=== PATIENT | female | born 1985 | race Caucasian/White ===

== ENCOUNTER 2017-04-17 00:19 | Emergency (ER) | payer OTHER ==
[2017-04-17] MEDS ORDERED: SODIUM CHLORIDE 0.9% 1,000 ML IV ONE (00:37)
[2017-04-17] MEDS ORDERED: cefTRIAXone 1 GM in SODIUM CHLORIDE 0.9% MINIBAG 100 ML IV STA (00:37)
[2017-04-17 01:00] LABS: BASOPHILS # (AUTO) 0.1 10^3/uL (0.0-0.1); BASOPHILS % (AUTO) 0.9 %; HGB - HEMOGLOBIN 13.1 g/dL (12.0-16.0); LYMPHOCYTES # (AUTO) 1.7 10^3/uL (1.5-3.5); LYMPHOCYTES % (AUTO) 18.5 %; MEAN CORPUSCULAR HEMOGLOBIN 27.6 pg (27.0-31.0); MONOCYTES # (AUTO) 0.8 10^3/uL (0.0-1.0); MONOCYTES % (AUTO) 8.4 %; NEUTROPHILS # (AUTO) 6.7 10^3/uL (1.5-6.6); NEUTROPHILS % (AUTO) 72.2 %; PLT - PLATELET COUNT 355 10^3/uL (130-450); RED BLOOD COUNT 4.73 10^6/uL (4.20-5.40); RED CELL DISTRIBUTION WIDTH 14.7 % (12.0-15.0); WHITE BLOOD COUNT 9.4 x10^3/uL (4.8-10.8)
[2017-04-17 01:10] LABS: ALBUMIN 4.3 g/dL (3.2-5.5); ALBUMIN/GLOBULIN RATIO 1.3 (1.0-2.2); BILIRUBIN,TOTAL 0.6 mg/dL (0.2-1.0); CALCIUM 9.1 mg/dL (8.5-10.3); CREATININE 0.9 mg/dL (0.4-1.0); TOTAL PROTEIN 7.5 g/dL (6.7-8.2)
--- NOTE | 2017-04-17 02:00 | ED Physician Documentation ---
History of Present Illness - Stated complaint Stated Complaint: FEVER - Chief complaint Chief Complaint: Fever - History obtained from History obtained from: Patient, Friend - History of Present Illness Timing: Today - Additonal information Additional information: patient is a 31 year old female with a history of stage 4 melanoma on chemotherapy who is presenting to the emergency department for fevers and aches. patient states that she had been diagnosed with a urinary tract infection two days ago and has been started on macrobid. patient states that she had a fever of 100.6 today so she called the oncall nurse for the oncology department. patient states that they told her to come to the emergency department for evaluation. Upon initial evaluation in the emergency department patient was afebrile but mildly tachycardic. patient stated that she always gets an elevated in the hospital. patient was otherwise well appearing. Review of Systems Constitutional: reports: Fever, Myalgias Eyes: denies: Decreased vision, Discharge, Irritation Ears: reports: Reviewed and negative Nose: reports: Reviewed and negative Throat: reports: Reviewed and negative Cardiac: denies: Chest pain / pressure, Palpitations Respiratory: denies: Cough, Wheezing GI: denies: Abdominal Pain, Nausea, Vomiting : reports: Frequency. denies: Dysuria Skin: denies: Rash, Lesions Musculoskeletal: denies: Neck pain, Back pain, Extremity pain Neurologic: denies: Generalized weakness, Focal weakness, Syncope Immunocompromised: reports: Immunocompromised, Chemotherapy PD PAST MEDICAL HISTORY - Past Medical History Past Medical History: Yes Other Past Medical History: Melnoma Stage IV - Past Surgical History Past Surgical History: Yes - Present Medications Home Medications: Ambulatory Orders Medication Instructions Recorded Confirmed Cephalexin [Keflex] 500 mg PO Q8H 7 Days capsule 04/17/17 Dabrafenib Mesylate [Tafinlar] 1 cap PO BID 04/17/17 04/17/17 Nitrofurantoin Monohyd/M-Cryst 1 cap PO BID 04/17/17 04/17/17 [Macrobid 100 mg Capsule] Trametinib Dimethyl Sulfoxide 3 tab PO DAILY 04/17/17 04/17/17 [Mekinist] - Allergies Allergies/Adverse Reactions: Allergies Allergy/AdvReac Type Severity Reaction Status Date / Time No Known Drug Allergies Allergy Verified 04/17/17 00:23 - Social History Does the pt smoke?: No Smoking Status: Never smoker Does the pt drink ETOH?: Yes Does the pt have substance abuse?: No - Immunizations Immunizations are current?: Yes - POLST Patient has POLST: No PD ED PE NORMAL - Vitals Vital signs reviewed: Yes - General General: Alert and oriented X 3, No acute distress, Well developed/nourished - HEENT HEENT: Atraumatic, PERRL, Moist mucous membranes, Pharynx benign - Neck Neck: Supple, no meningeal sign, No JVD - Respiratory Respiratory: No respiratory distress, Clear bilaterally - Abdomen Abdomen: Soft, Non tender, Non distended - Derm Derm: Normal color, Warm and dry, No rash - Extremities Extremities: No deformity, Normal ROM s pain, No calf tenderness / cord - Neuro Neuro: Alert and oriented X 3, No motor deficit, No sensory deficit, Normal speech Eye Opening: Spontaneous Motor: Obeys Commands Verbal: Oriented GCS Score: 15 - Psych Psych: Normal mood PD ED PE EXPANDED - Cardiac Cardiac: Tachy Results - Vitals Vitals: Vital Signs - 24 hr 04/17/17 04/17/17 00:20 01:22 Temperature 37.6 C H 36.9 C Heart Rate 120 H 104 H Respiratory 16 17 Rate Blood Pressure 125/81 H 106/82 H O2 Saturation 97 99 Oxygen O2 Source Room air - Labs Labs: Laboratory Tests 04/17/17 04/17/17 00:50 00:50 WBC 9.4 RBC 4.73 Hgb 13.1 Hct 37.4 MCV 79.0 L MCH 27.6 MCHC 35.0 RDW 14.7 Plt Count 355 MPV 8.0 Neut # 6.7 H Lymph # 1.7 Powell # 0.8 Eos # 0.0 Baso # 0.1 Absolute Nucleated RBC 0.00 Nucleated RBC % 0.0 Sodium 133 L Potassium 3.6 Chloride 101 Carbon Dioxide 21 Anion Gap 11.0 BUN 13 Creatinine 0.9 Estimated GFR (MDRD) 74 L Glucose 113 H Calcium 9.1 Total Bilirubin 0.6 AST 24 ALT 21 Alkaline Phosphatase 76 Total Protein 7.5 Albumin 4.3 Globulin 3.2 Albumin/Globulin Ratio 1.3 Lipase 31 PD MEDICAL DECISION MAKING - ED course Complexity details: reviewed old records, reviewed results, re-evaluated patient , considered differential, d/w patient, d/w banking consultant ED course: Patient was seen and examined at bedside. IV access was gained and labs were drawn. Cultures were drawn. patient was treated with a fluid bolus and rocephin. When patient's diagnostics came back they were within normal limits. Patient's tachycardia resolved. cancer center was contacted and the case was discussed with the supervisor dehydrogenation fellow. he agreed that the patient was likely stable for outpatient follow up and the team would reach out to the patient to check in on her tomorrow. Patient was made aware of, and agreed with the plan. Patient was able to tolerate PO without difficulty and was stable for discharge with outpatient follow up. Departure - Departure Disposition: 01 Home, Self Care Clinical Impression: Urinary tract infection Condition: Good Instructions: ED UTI Cystitis Female, ED Fever Control Follow-Up: primary,care provider [Other] - Tomorrow Prescriptions: Cephalexin [Keflex] 500 mg PO Q8H 7 Days capsule Comments: Your diagnostics today were within normal limits. Your antibiotics have been switched and you will need to take them every 8 hours. You should follow up with your oncology team tomorrow. You should stay well hydrated and take motrin or tylenol as needed for fevers. You may return to the emergency department at any time for new, worsening or uncontrollable symptoms.
[2017-04-17] MEDS ORDERED: CEPHALEXIN 250 MG Prepack 8 PO ONE (02:04)
[2017-04-17 02:21] LABS: BILIRUBIN,URINE NEGATIVE (NEGATIVE); GLUCOSE, URINE (UA) NEGATIVE (NEGATIVE); KETONES,URINE (UA) TRACE mg/dL (NEGATIVE); LEUKOCYTE ESTERASE, URINE NEGATIVE (NEGATIVE); NITRITE,URINE NEGATIVE (NEGATIVE); OCCULT BLOOD,URINE NEGATIVE (NEGATIVE); PROTEIN,URINE NEGATIVE (NEGATIVE); UROBILINOGEN,URINE 0.2 (NORMAL) E.U./dL (NORMAL)
[2017-04-17 02:24] LABS: CLARITY,URINE CLEAR (CLEAR)
[2017-04-17 02:25] LABS: HCG UR QUAL NEGATIVE
[2017-04-17 02:30] VITALS: BP 102/72
== END 2017-04-17 02:25 | disposition home or self-care (01) ==
LOC: ED 00:19
DX: N39.0 Urinary tract infection, site not specified (principal); C43.9 Malignant melanoma of skin, unspecified; Z79.899 Other long term (current) drug therapy
CPT/HCPCS: 36415; 80053; 81001; 81003; 81025; 83605; 83690; 85025; 87040; 87086; 99283; 99284

== ENCOUNTER 2017-04-18 23:05 | Emergency (ER) | payer OTHER ==
[2017-04-18] MEDS ORDERED: SODIUM CHLORIDE 0.9% 1,000 ML IV ONE (23:33)
[2017-04-18 23:58] LABS: BASOPHILS % (AUTO) 0.3 %; HGB - HEMOGLOBIN 12.1 g/dL (12.0-16.0); LYMPHOCYTES # (AUTO) 1.2 10^3/uL (1.5-3.5); MEAN CORPUSCULAR HEMOGLOBIN 27.8 pg (27.0-31.0); MEAN CORPUSCULAR HGB CONC 35.5 g/dL (32.0-36.0); MEAN CORPUSCULAR VOLUME 78.4 fL (81.0-99.0); MONOCYTES # (AUTO) 0.4 10^3/uL (0.0-1.0); MONOCYTES % (AUTO) 6.8 %; NEUTROPHILS # (AUTO) 4.1 10^3/uL (1.5-6.6); NEUTROPHILS % (AUTO) 71.9 %; PLT - PLATELET COUNT 300 10^3/uL (130-450); RED BLOOD COUNT 4.37 10^6/uL (4.20-5.40); RED CELL DISTRIBUTION WIDTH 14.3 % (12.0-15.0); WHITE BLOOD COUNT 5.7 x10^3/uL (4.8-10.8)
[2017-04-19 00:08] LABS: BILIRUBIN,URINE NEGATIVE (NEGATIVE); GLUCOSE, URINE (UA) NEGATIVE (NEGATIVE); KETONES,URINE (UA) 15 mg/dL (NEGATIVE); LEUKOCYTE ESTERASE, URINE NEGATIVE (NEGATIVE); NITRITE,URINE NEGATIVE (NEGATIVE); OCCULT BLOOD,URINE NEGATIVE (NEGATIVE); PROTEIN,URINE NEGATIVE (NEGATIVE); UROBILINOGEN,URINE 2 E.U./dL (NORMAL)
[2017-04-19 00:09] LABS: ALBUMIN 3.6 g/dL (3.2-5.5); ALBUMIN/GLOBULIN RATIO 1.2 (1.0-2.2); BILIRUBIN,TOTAL 0.5 mg/dL (0.2-1.0); CALCIUM 8.6 mg/dL (8.5-10.3); CREATININE 0.8 mg/dL (0.4-1.0); TOTAL PROTEIN 6.7 g/dL (6.7-8.2)
[2017-04-19 00:10] LABS: CLARITY,URINE CLEAR (CLEAR); HCG UR QUAL NEGATIVE
--- NOTE | 2017-04-19 00:38 | XRAY Report ---
EXAM: CHEST RADIOGRAPHY EXAM DATE: 04/19/2017 12:23 AM. CLINICAL HISTORY: Fevers, chemo. COMPARISON: None. TECHNIQUE: 1 view. FINDINGS: Lungs/Pleura: No focal opacities evident. No pleural effusion. No pneumothorax. Mediastinum: Within exam limitations, the cardiomediastinal contour is normal. Other: None. IMPRESSION: Normal single view chest. [facility] Referring Provider Line: [phone] SITE ID: [id number]
--- NOTE | 2017-04-19 01:13 | ED Physician Documentation ---
PD HPI FEVER - Stated complaint Stated Complaint: FEVER - Chief complaint Chief Complaint: Fever - History obtained from History obtained from: Patient - History of Present Illness Timing - onset: Today, How many days ago (5) Timing details: Intermittant Associated symptoms: Chills. No: Sweats, Rigors Contributing factors: Immunocompromised Similar symptoms before: Work up / diagnostics, Treatment Recently seen: Emergency Dept - Additional information Additional information: Patient is a 31 year old female with a history of metastatic melanoma who is presenting to the emergency department for fevers. patient was seen in the emergency department the day before. Patient has been on antibiotics for urinary tract infection. patient states that she is still spiking fevers. patient talked to the environmental health physician nurse today who told her to come to the emergency department for evaluation. patient states that her highest fever was 103, and thaty they have been resolving with tylenol. Review of Systems Constitutional: reports: Fever, Chills Eyes: denies: Discharge, Irritation Ears: denies: Ear pain, Drainage/discharge Nose: denies: Rhinorrhea / runny nose, Congestion, Sinus pressure / pain Throat: denies: Oral lesions / sores, Sore throat Cardiac: denies: Chest pain / pressure, Palpitations Respiratory: denies: Dyspnea, Cough, Wheezing GI: denies: Abdominal Pain, Nausea, Vomiting : denies: Dysuria, Frequency, Hesitancy Skin: reports: Rash. denies: Lesions, Abrasion (s) Musculoskeletal: denies: Neck pain, Back pain, Extremity pain Neurologic: denies: Generalized weakness, Focal weakness, Numbness, Headache, Head injury Immunocompromised: reports: Immunocompromised PD PAST MEDICAL HISTORY - Past Surgical History Past Surgical History: Yes - Present Medications Home Medications: Ambulatory Orders Medication Instructions Recorded Confirmed Cephalexin [Keflex] 500 mg PO Q8H 7 Days capsule 04/17/17 - Allergies Allergies/Adverse Reactions: Allergies Allergy/AdvReac Type Severity Reaction Status Date / Time No Known Drug Allergies Allergy Verified 04/18/17 23:13 - Social History Does the pt smoke?: No Smoking Status: Never smoker Does the pt drink ETOH?: Yes Does the pt have substance abuse?: No - Immunizations Immunizations are current?: Yes - POLST Patient has POLST: No PD ED PE NORMAL - Vitals Vital signs reviewed: Yes - General General: Alert and oriented X 3, Well developed/nourished - HEENT HEENT: Atraumatic, PERRL, Moist mucous membranes - Neck Neck: Supple, no meningeal sign - Cardiac Cardiac: No murmur - Respiratory Respiratory: No respiratory distress, Clear bilaterally - Abdomen Abdomen: Soft, Non tender, Non distended - Derm Derm: Warm and dry - Extremities Extremities: No deformity, Normal ROM s pain - Neuro Neuro: Alert and oriented X 3, No motor deficit, No sensory deficit, Normal speech Eye Opening: Spontaneous Motor: Obeys Commands Verbal: Oriented GCS Score: 15 PD ED PE EXPANDED - Cardiac Cardiac: Tachy - Derm Derm: Rash (few erythematous spots on patient' upper extremity. no blisters, no sloughing ) Results - Vitals Vitals: Vital Signs - 24 hr 04/18/17 04/19/17 23:08 01:19 Temperature 37.6 C H 37.5 C Heart Rate 125 H 113 H Respiratory 18 24 Rate Blood Pressure 140/67 H 107/68 O2 Saturation 97 99 Oxygen O2 Source Room air - Labs Labs: Laboratory Tests 04/18/17 04/18/17 04/18/17 00:34 23:32 23:45 WBC 5.7 RBC 4.37 Hgb 12.1 Hct 34.3 L MCV 78.4 L MCH 27.8 MCHC 35.5 RDW 14.3 Plt Count 300 MPV 8.0 Neut # 4.1 Lymph # 1.2 L Wolfe # 0.4 Eos # 0.0 Baso # 0.0 Absolute Nucleated RBC 0.00 Nucleated RBC % 0.0 Sodium Potassium Chloride Carbon Dioxide Anion Gap BUN Creatinine Estimated GFR (MDRD) Glucose Lactic Acid 1.0 Calcium Total Bilirubin AST ALT Alkaline Phosphatase Total Protein Albumin Globulin Albumin/Globulin Ratio Lipase TSH Urine Color YELLOW Urine Clarity CLEAR Urine pH 8.0 H Ur Specific [place] 1.020 Urine Protein NEGATIVE Urine Glucose (UA) NEGATIVE Urine Ketones 15 H Urine Occult Blood NEGATIVE Urine Nitrite NEGATIVE Urine Bilirubin NEGATIVE Urine Urobilinogen 2 H Ur Leukocyte Esterase NEGATIVE Ur Microscopic Review NOT INDICATED Urine Culture Comments NOT INDICATED Urine HCG, Qual NEGATIVE Influenza A (Rapid) Influenza B (Rapid) Influenza Types A,B Ag 04/18/17 04/18/17 04/19/17 23:45 23:45 00:14 WBC RBC Hgb Hct MCV MCH MCHC RDW Plt Count MPV Neut # Lymph # Wolfe # Eos # Baso # Absolute Nucleated RBC Nucleated RBC % Sodium 134 L Potassium 3.7 Chloride 101 Carbon Dioxide 23 Anion Gap 10.0 BUN 9 Creatinine 0.8 Estimated GFR (MDRD) 84 L Glucose 107 H Lactic Acid Calcium 8.6 Total Bilirubin 0.5 AST 27 ALT 19 Alkaline Phosphatase 62 Total Protein 6.7 Albumin 3.6 Globulin 3.1 Albumin/Globulin Ratio 1.2 Lipase 25 TSH 1.23 Urine Color Urine Clarity Urine pH Ur Specific [place] Urine Protein Urine Glucose (UA) Urine Ketones Urine Occult Blood Urine Nitrite Urine Bilirubin Urine Urobilinogen Ur Leukocyte Esterase Ur Microscopic Review Urine Culture Comments Urine HCG, Qual Influenza A (Rapid) Negative Influenza B (Rapid) Negative Influenza Types A,B Ag - - Rads (name of study) chest x-ray Radiology: Final report received (no acute abnormality) PD MEDICAL DECISION MAKING - ED course Complexity details: reviewed old records, reviewed results, re-evaluated patient , considered differential, d/w patient, d/w family, d/w big machine consultant ED course: Patient was seen and examined at bedside. iv access was gained, labs and cultures were drawn. patient was treated with a fluid bolus and urine was collected. patient was a febrile. when patient's diagnostics came back they were within normal limits. banquet server on call Hem Onc at [facility] was contacted and the case was discussed with the covering physician. They stated if the work up was normal it was likely secondary to drug side effect and uti. The reported it was safe for the patient to go home and follow up outpatient. Patient and family were made aware of the findings. ptaient required no further work up and was stable for discharge with outpatient follow up. Departure - Departure Disposition: Home, Self Care Clinical Impression: Fever Condition: Good Instructions: ED Fever Control Follow-Up: Lionel Tran MD [Primary Care Provider] - Within 3 Days Comments: Your diagnostics today were within normal limits. Your symptoms are likely secondary side effect of your chemotherapy. You should continue with your course of antibiotics and stay well hydrated. You can take motrin or tyelnol as needed for fevers. You should follow up with your team on friday for further evaluation and care. Discharge Date/Time: 04/19/17 01:31
[2017-04-19] MEDS ORDERED: ACETAMINOPHEN 500 MG TABLET PO STA (01:15)
[2017-04-19 01:21] VITALS: BP 107/68
== END 2017-04-19 01:31 | disposition home or self-care (01) ==
LOC: ED 23:05
DX: R50.9 Fever, unspecified (principal); Z85.820 Personal history of malignant melanoma of skin
CPT/HCPCS: 36415; 71045; 80053; 81003; 81025; 83605; 83690; 84443; 85025; 87040; 87275; 87276; 96360; 99283; A9270; 81001; 87086

== ENCOUNTER 2017-07-12 09:33 | Outpatient (CLI) | payer OTHER | END 2017-07-12 09:34 | disposition home or self-care (01) | LOC: EMS 09:33 | PROVIDERS: ATTEND Surgery | DX: L50.9 Urticaria, unspecified (principal) | CPT/HCPCS: A0425; A0427 ==

== ENCOUNTER 2017-07-12 10:00 | Emergency (ER) | payer OTHER ==
[2017-07-12] MEDS ORDERED: DEXAMETHASONE 10 MG/ML VIAL IVP STA (11:14)
--- NOTE | 2017-07-12 11:14 | ED Physician Documentation ---
PD HPI SKIN - Stated complaint Stated Complaint: POSS MED REACTION - Chief complaint Chief Complaint: Allergic Rx - History obtained from History obtained from: Patient - History of Present Illness Timing - onset: Yesterday Timing - duration: Days (1) Timing - details: Gradual onset, Still present Location: [place] Quality / character: Itchy, Swelling Improved by: Benadryl Associated symptoms: No: Facial swelling, Dyspnea Contributing factors: Exposed to medication Similar symptoms before: Has not had sx before Recently seen: Other (getting regular care for melenoma) - Additional information Additional information: 31-year-old female undergoing treatment for Metastatic melanoma has developed an acute cutaneous reaction. She is taking zelboraf and she has stopped another medication for side effects as well. She has been on a number of clinical trials since 2012 and has mets to the liver and lung that are now stable on treatment. She denies soa or involvement of mucous membranes or skin sloughing . Review of Systems Constitutional: reports: Fever, Chills, Sweats Eyes: denies: Decreased vision Ears: denies: Ear pain Nose: denies: Congestion Throat: denies: Sore throat Cardiac: denies: Chest pain / pressure, Palpitations Respiratory: denies: Dyspnea, Cough GI: denies: Abdominal Pain, Nausea, Vomiting : denies: Dysuria, Frequency Skin: reports: Rash Musculoskeletal: denies: Neck pain, Back pain, Extremity pain Neurologic: denies: Generalized weakness, Focal weakness, Numbness PD PAST MEDICAL HISTORY - Past Medical History Past Medical History: Yes - Past Surgical History Past Surgical History: Yes - Present Medications Home Medications: Ambulatory Orders Medication Instructions Recorded Confirmed Cephalexin [Keflex] 500 mg PO Q8H 7 Days capsule 04/17/17 predniSONE [Prednisone] 80 mg PO DAILY #40 tablet 07/12/17 - Allergies Allergies/Adverse Reactions: Allergies Allergy/AdvReac Type Severity Reaction Status Date / Time No Known Drug Allergies Allergy Verified 04/18/17 23:13 - Social History Does the pt smoke?: No Smoking Status: Never smoker Does the pt drink ETOH?: Yes Does the pt have substance abuse?: No - Immunizations Immunizations are current?: Yes - POLST Patient has POLST: No PD ED PE NORMAL - Vitals Vital signs reviewed: Yes (febrile, tachy and hypertensive) - General General: Alert and oriented X 3, No acute distress, Well developed/nourished, Other - HEENT HEENT: Atraumatic, PERRL, EOMI, Ears normal, Moist mucous membranes, Pharynx benign, Dentition benign - Neck Neck: Supple, no meningeal sign, No bony TTP - Cardiac Cardiac: RRR, No murmur - Respiratory Respiratory: No respiratory distress, Clear bilaterally - Abdomen Abdomen: Soft, Non tender - Back Back: No CVA TTP, No spinal TTP - Derm Derm: Warm and dry, Other (muculopapular erythematous rash covering entire body. No sloughing of skin and no involvment of mucous membranes. ) - Extremities Extremities: No deformity, No edema - Neuro Neuro: No motor deficit, No sensory deficit Eye Opening: Spontaneous Motor: Obeys Commands Verbal: Oriented GCS Score: 15 - Psych Psych: Normal mood, Normal affect Results - Vitals Vitals: Vital Signs - 24 hr 07/12/17 07/12/17 07/12/17 10:03 11:16 14:12 Temperature 39 C H 38.9 C H Heart Rate 104 H 102 H 120 H Respiratory 20 20 18 Rate Blood Pressure 131/74 H 112/69 98/64 O2 Saturation 98 100 97 07/12/17 07/12/17 14:24 15:25 Temperature 37.3 C Heart Rate 111 H Respiratory 18 Rate Blood Pressure 110/74 O2 Saturation 95 Oxygen O2 Source Room air - Labs Labs: Laboratory Tests 07/12/17 07/12/17 07/12/17 12:10 12:10 12:32 WBC 6.6 RBC 4.49 Hgb 11.3 L Hct 33.8 L MCV 75.2 L MCH 25.1 L MCHC 33.3 RDW 14.3 Plt Count 294 MPV 8.0 Neut # 5.4 Lymph # 0.7 L [place] # 0.2 Eos # 0.2 Baso # 0.1 Absolute Nucleated RBC 0.00 Nucleated RBC % 0.0 Sodium 138 Potassium 2.9 L Chloride 104 Carbon Dioxide 24 Anion Gap 10.0 BUN 10 Creatinine 1.1 H Estimated GFR (MDRD) 58 L Glucose 85 Calcium 8.7 Total Bilirubin 0.8 AST 22 ALT 25 Alkaline Phosphatase 50 Total Protein 6.9 Albumin 3.6 Globulin 3.3 Albumin/Globulin Ratio 1.1 Lipase 13 L Urine Color YELLOW Urine Clarity CLEAR Urine pH 5.5 Ur Specific [place] 1.025 Urine Protein NEGATIVE Urine Glucose (UA) NEGATIVE Urine Ketones NEGATIVE Urine Occult Blood TRACE-INTA Urine Nitrite NEGATIVE Urine Bilirubin NEGATIVE Urine Urobilinogen 0.2 (NORMAL) Ur Leukocyte Esterase NEGATIVE Ur Microscopic Review NOT INDICATED Urine Culture Comments NOT INDICATED - Rads (name of study) 2 view chest Radiology: Prelim report reviewed (Impression: No acute cardiopulmonary abnormality.), EMP read indepedently, See rad report PD MEDICAL DECISION MAKING - ED course Complexity details: reviewed old records, reviewed results, re-evaluated patient , considered differential, d/w patient, d/w family ED course: 31 y/o female getting cancer care for metastatic melanoma has developed a whole body rash that is Fulminant but does not involve mucous membranes and there is no skin sloughing at this point. Her skin reaction looks like a severe medication eruption and my concern is for development of Ureña-Renaldo. At this point I do not see any evidence of Ureña-Renaldo but this rash has worsened 4 days after discontinuation of the medication and with the continued use of 20 mg of prednisone per day.Here in the emergency department she is administered 10 mg of dexamethasone and her provider at [facility] is consulted by telephone. Michelle Hull NP has reviewed the patients history and consulted providers at [facility] and she recommends prednisone at 1mg/kg daily and follow up with [facility] on Friday. The patient is administered prednisone 80mg PO here and instructed to return for skin sloughing or involvement of mucous membranes. The patient became concerned that her rash was worsening while she was here in the emergency department and she did stay in the department several hours longer and her rash did seem to begin to improve she felt much more comfortable about going home. Departure - Departure Disposition: Home, Self Care Clinical Impression: Drug-induced skin rash Condition: Stable Instructions: ED Drug React Allergic Follow-Up: Lionel Tran MD [Primary Care Provider] - Prescriptions: predniSONE [Prednisone] 80 mg PO DAILY #40 tablet
--- NOTE | 2017-07-12 12:08 | XRAY Report ---
EXAM: CHEST RADIOGRAPHY EXAM DATE: 07/12/2017 11:36 AM. CLINICAL HISTORY: Fever rash. COMPARISON: 04/19/2017. TECHNIQUE: 2 views. FINDINGS: Lungs/Pleura: No focal opacities evident. No pleural effusion. No pneumothorax. Normal volumes. Mediastinum: Heart and mediastinal contours are unremarkable. Other: Surgical clips again project over the right axilla. IMPRESSION: No acute cardiopulmonary abnormality. [facility] Referring Provider Line: [phone] SITE ID: [id number]
[2017-07-12 12:38] LABS: BASOPHILS # (AUTO) 0.1 10^3/uL (0.0-0.1); BASOPHILS % (AUTO) 1.4 %; EOSINOPHILS # (AUTO) 0.2 10^3/uL (0.0-0.7); EOSINOPHILS % (AUTO) 3.2 %; HGB - HEMOGLOBIN 11.3 g/dL (12.0-16.0); LYMPHOCYTES # (AUTO) 0.7 10^3/uL (1.5-3.5); LYMPHOCYTES % (AUTO) 10.1 %; MEAN CORPUSCULAR HEMOGLOBIN 25.1 pg (27.0-31.0); MEAN CORPUSCULAR HGB CONC 33.3 g/dL (32.0-36.0); MEAN CORPUSCULAR VOLUME 75.2 fL (81.0-99.0); MONOCYTES # (AUTO) 0.2 10^3/uL (0.0-1.0); MONOCYTES % (AUTO) 3.4 %; NEUTROPHILS # (AUTO) 5.4 10^3/uL (1.5-6.6); NEUTROPHILS % (AUTO) 81.9 %; PLT - PLATELET COUNT 294 10^3/uL (130-450); RED BLOOD COUNT 4.49 10^6/uL (4.20-5.40); RED CELL DISTRIBUTION WIDTH 14.3 % (12.0-15.0); WHITE BLOOD COUNT 6.6 x10^3/uL (4.8-10.8)
[2017-07-12 12:46] LABS: BILIRUBIN,URINE NEGATIVE (NEGATIVE); GLUCOSE, URINE (UA) NEGATIVE (NEGATIVE); KETONES,URINE (UA) NEGATIVE (NEGATIVE); LEUKOCYTE ESTERASE, URINE NEGATIVE (NEGATIVE); NITRITE,URINE NEGATIVE (NEGATIVE); OCCULT BLOOD,URINE TRACE-INTA (NEGATIVE); PH,URINE 5.5 PH (5.0-7.5); PROTEIN,URINE NEGATIVE (NEGATIVE); UROBILINOGEN,URINE 0.2 (NORMAL) E.U./dL (NORMAL)
[2017-07-12 12:49] LABS: ALBUMIN 3.6 g/dL (3.2-5.5); ALBUMIN/GLOBULIN RATIO 1.1 (1.0-2.2); BILIRUBIN,TOTAL 0.8 mg/dL (0.2-1.0); CALCIUM 8.7 mg/dL (8.5-10.3); CREATININE 1.1 mg/dL (0.4-1.0); TOTAL PROTEIN 6.9 g/dL (6.7-8.2)
[2017-07-12 12:49] LABS: CLARITY,URINE CLEAR (CLEAR)
[2017-07-12] MEDS ORDERED: POTASSIUM BICARB 25 MEQ TABLET PO STA (13:14)
[2017-07-12] MEDS ORDERED: predniSONE 20 MG TABLET PO STA (13:45)
[2017-07-12 15:26] VITALS: BP 110/74
== END 2017-07-12 18:38 | disposition home or self-care (01) ==
LOC: EDUNIT# → ED 10:00
DX: L27.0 Generalized skin eruption due to drugs and medicaments taken internally (principal); C79.9 Secondary malignant neoplasm of unspecified site; C78.7 Secondary malignant neoplasm of liver and intrahepatic bile duct; C78.00 Secondary malignant neoplasm of unspecified lung
CPT/HCPCS: 36415; 71046; 80053; 81003; 83690; 85025; 87040; 96374; 99284; A9270; J7512; 81001; 87086

== ENCOUNTER 2017-08-24 12:45 | Emergency (ER) | payer OTHER ==
[2017-08-24 13:34] LABS: BILIRUBIN,URINE NEGATIVE (NEGATIVE); GLUCOSE, URINE (UA) NEGATIVE (NEGATIVE); KETONES,URINE (UA) NEGATIVE (NEGATIVE); LEUKOCYTE ESTERASE, URINE SMALL (NEGATIVE); NITRITE,URINE NEGATIVE (NEGATIVE); OCCULT BLOOD,URINE TRACE-INTA (NEGATIVE); PROTEIN,URINE NEGATIVE (NEGATIVE); UROBILINOGEN,URINE 0.2 (NORMAL) E.U./dL (NORMAL)
[2017-08-24 13:37] LABS: CLARITY,URINE HAZY (CLEAR); HCG UR QUAL NEGATIVE
[2017-08-24 13:40] LABS: BACTERIA,URINE Few /HPF (None Seen); SQUAMOUS EPITHELIAL CELL,UR MANY Squamous (<= Few)
--- NOTE | 2017-08-24 13:47 | ED Physician Documentation ---
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 Normal BM today. No N/V/D.) - Additional information Additional information: She has the CAT scan read from 9 days ago with her, she has multiple large liver masses, the largest of which is about 5.8 cm. Review of Systems Ten Systems: 10 systems reviewed and negative Constitutional: denies: Fever, Chills GI: denies: Vomiting, Diarrhea, Hematemesis, Bloody / black stool : denies: Dysuria, Frequency PD PAST MEDICAL HISTORY - Past Medical History Past Medical History: Yes Derm: Other (metsattic melanoma) - Past Surgical History Past Surgical History: Yes - Present Medications Home Medications: Ambulatory Orders Medication Instructions Recorded Confirmed Oxycodone HCl/Acetaminophen 1 - 2 tab PO Q4H PRN #15 tablet 08/24/17 [Percocet 5-325 mg Tablet] - Allergies Allergies/Adverse Reactions: Allergies Allergy/AdvReac Type Severity Reaction Status Date / Time No Known Drug Allergies Allergy Verified 04/18/17 23:13 - Social History Does the pt smoke?: No Smoking Status: Never smoker Does the pt drink ETOH?: Yes Does the pt have substance abuse?: No - Family History Family history: reports: Non contributory - Immunizations Immunizations are current?: Yes - POLST Patient has POLST: No PD ED PE NORMAL - Vitals Vital signs reviewed: Yes - General General: Alert and oriented X 3, No acute distress - HEENT HEENT: PERRL, EOMI - Neck Neck: Supple, no meningeal sign, No bony TTP - Cardiac Cardiac: RRR, No murmur - Respiratory Respiratory: No respiratory distress, Clear bilaterally - Abdomen Abdomen: Other (Soft without surgical signs, moderate epigastric tenderness without guarding or rebound.) - Back Back: No CVA TTP, No spinal TTP - Derm Derm: Normal color, Warm and dry - Extremities Extremities: No deformity, No tenderness to palpate - Neuro Neuro: Alert and oriented X 3, Normal speech - Psych Psych: Normal mood, Normal affect Results - Vitals Vitals: Vital Signs - 24 hr 08/24/17 13:05 Temperature 36.4 C L Heart Rate 106 H Respiratory 18 Rate Blood Pressure 131/95 H O2 Saturation 100 Oxygen O2 Source Room air - Labs Labs: Laboratory Tests 08/24/17 08/24/17 08/24/17 13:17 14:10 14:10 WBC 8.2 RBC 5.36 Hgb 13.4 Hct 40.3 MCV 75.1 L MCH 24.9 L MCHC 33.2 RDW 17.6 H Plt Count 373 MPV 8.0 Neut # 5.6 Lymph # 1.8 Rankin # 0.5 Eos # 0.1 Baso # 0.0 Absolute Nucleated RBC 0.00 Nucleated RBC % 0.1 PT 11.6 INR 1.0 Sodium Potassium Chloride Carbon Dioxide Anion Gap BUN Creatinine Estimated GFR (MDRD) Glucose Calcium Total Bilirubin AST ALT Alkaline Phosphatase Total Protein Albumin Globulin Albumin/Globulin Ratio Lipase Urine Color YELLOW Urine Clarity HAZY Urine pH 6.0 Ur Specific [place] >=1.030 H Urine Protein NEGATIVE Urine Glucose (UA) NEGATIVE Urine Ketones NEGATIVE Urine Occult Blood TRACE-INTA Urine Nitrite NEGATIVE Urine Bilirubin NEGATIVE Urine Urobilinogen 0.2 (NORMAL) Ur Leukocyte Esterase SMALL H Urine RBC 6-10 H Urine WBC 6-10 H Ur Squamous Epith Cells MANY Squamous H Urine Bacteria Few Ur Microscopic Review INDICATED Urine Culture Comments NOT INDICATED Urine HCG, Qual NEGATIVE Blood Type Antibody Screen 08/24/17 08/24/17 14:10 14:10 WBC RBC Hgb Hct MCV MCH MCHC RDW Plt Count MPV Neut # Lymph # [place] # Eos # Baso # Absolute Nucleated RBC Nucleated RBC % PT INR Sodium 137 Potassium 3.6 Chloride 103 Carbon Dioxide 24 Anion Gap 10.0 BUN 12 Creatinine 0.6 Estimated GFR (MDRD) 117 Glucose 85 Calcium 9.8 Total Bilirubin 0.7 AST 22 ALT 18 Alkaline Phosphatase 51 Total Protein 7.5 Albumin 4.4 Globulin 3.1 Albumin/Globulin Ratio 1.4 Lipase 34 Urine Color Urine Clarity Urine pH Ur Specific [place] Urine Protein Urine Glucose (UA) Urine Ketones Urine Occult Blood Urine Nitrite Urine Bilirubin Urine Urobilinogen Ur Leukocyte Esterase Urine RBC Urine WBC Ur Squamous Epith Cells Urine Bacteria Ur Microscopic Review Urine Culture Comments Urine HCG, Qual Blood Type A POSITIVE Antibody Screen NEGATIVE - Rads (name of study) CT A/P Radiology: EMP read contemporaneously (The CAT scan read is basically stable from the one they have with them without evidence of tumor bleeding or acute inflammatory process.) PD MEDICAL DECISION MAKING - ED course ED course: Given the clinical history and the abrupt onset epigastric pain I was concerned for potentially bleeding into 1 of her tumors so repeat CT scanning was done without evidence of staining. Departure - Departure Disposition: 01 Home, Self Care Clinical Impression: Metastatic melanoma Abdominal pain Qualifiers: Abdominal location: epigastric Qualified Code(s): R10.13 - Epigastric pain Condition: Good Record reviewed to determine appropriate education?: Yes Instructions: Abdominal Pain Prescriptions: Oxycodone HCl/Acetaminophen [Percocet 5-325 mg Tablet] 1 - 2 tab PO Q4H PRN #15 tablet PRN Reason: Pain Comments: Your lab work and CAT scan are without significant change from prior. There is no evidence of bleeding or acute inflammatory process. You can use the pain medication as needed and follow-up with your physician at the [facility] for further evaluation and treatment. Your blood pressure was elevated today on check into the emergency department. This does not mean that you have hypertension, it is a common phenomenon to come to the emergency department and have elevated blood pressure. I recommend that you see your primary care physician within the week to have it rechecked when you are feeling better.
[2017-08-24] MEDS ORDERED: MORPHINE 2 MG/ML SYRINGE IVP STA (13:55)
[2017-08-24 14:20] LABS: BASOPHILS % (AUTO) 0.6 %; EOSINOPHILS # (AUTO) 0.1 10^3/uL (0.0-0.7); EOSINOPHILS % (AUTO) 1.1 %; HGB - HEMOGLOBIN 13.4 g/dL (12.0-16.0); LYMPHOCYTES # (AUTO) 1.8 10^3/uL (1.5-3.5); LYMPHOCYTES % (AUTO) 22.6 %; MEAN CORPUSCULAR HEMOGLOBIN 24.9 pg (27.0-31.0); MEAN CORPUSCULAR HGB CONC 33.2 g/dL (32.0-36.0); MEAN CORPUSCULAR VOLUME 75.1 fL (81.0-99.0); MONOCYTES # (AUTO) 0.5 10^3/uL (0.0-1.0); MONOCYTES % (AUTO) 6.7 %; NEUTROPHILS # (AUTO) 5.6 10^3/uL (1.5-6.6); PLT - PLATELET COUNT 373 10^3/uL (130-450); RED BLOOD COUNT 5.36 10^6/uL (4.20-5.40); RED CELL DISTRIBUTION WIDTH 17.6 % (12.0-15.0); WHITE BLOOD COUNT 8.2 x10^3/uL (4.8-10.8)
[2017-08-24] MEDS ORDERED: IOPAMIDOL-300 100 ML VIAL ONE (14:21)
[2017-08-24 14:25] LABS: PT - PROTHROMBIN TIME 11.6 secs (9.9-12.6)
[2017-08-24 14:33] LABS: ALBUMIN 4.4 g/dL (3.2-5.5); ALBUMIN/GLOBULIN RATIO 1.4 (1.0-2.2); BILIRUBIN,TOTAL 0.7 mg/dL (0.2-1.0); CALCIUM 9.8 mg/dL (8.5-10.3); CREATININE 0.6 mg/dL (0.4-1.0); TOTAL PROTEIN 7.5 g/dL (6.7-8.2)
[2017-08-24] MEDS ORDERED: IOPAMIDOL-300 100 ML VIAL IVP ONE (14:52)
--- NOTE | 2017-08-24 15:18 | CT Report ---
EXAM: CT ABDOMEN AND PELVIS EXAM DATE: 08/24/2017 02:42 PM. CLINICAL HISTORY: IV only, known mets to liver, sudden upper pain 2d. COMPARISONS: None. TECHNIQUE: Routine helical CT imaging was performed through the abdomen and pelvis. IV contrast: 100 cc Isovue-300 IV. Enteric contrast: No. Reconstructions: Coronal and sagittal. In accordance with CT protocol optimization, one or more of the following dose reduction techniques w ere utilized for this exam: automated exposure control, adjustment of mA and/or KV based on patient s ize, or use of iterative reconstructive technique. FINDINGS: Lung Bases: Unremarkable. Liver: There are multiple heterogeneously hypoenhancing liver lesions. Largest lesion centered in seg ment 8 measures 5.8 x 4.2 cm series 3 image 6. There is a round 0.9 cm lesion segment 2 image 10. The re are 2 adjacent lesions in segment 2 measuring 1.1 and 1.0 cm in diameter. There is a segment 8 les ion measuring 1.2 cm. The liver vessels are patent. No intrahepatic biliary dilatation. Gallbladder/Bile Ducts: Unremarkable. Spleen: Normal. Pancreas: Normal. Adrenal Glands: Normal. Kidneys: Normal. No masses or hydronephrosis. Peritoneal Cavity/Bowel: Normal. No free fluid, free air or adenopathy. No masses or acute inflammato ry process. The appendix is well visualized and normal. Pelvic Organs: There is a cystic lesion in the left ovary measuring 1.8 cm in diameter. The ovaries a re normal in size. The urinary bladder and uterus appear unremarkable. Vasculature: No aneurysms or other significant abnormality. Bones: No significant abnormality. Other: None. IMPRESSION: 1. Multiple solid liver lesions largest 5.8 cm in diameter. Findings consistent with the clinical his tory of liver metastases. 2. No localizing a q. Day inflammatory process is identified. 3. Probable dominant follicle or cyst in left ovary is most likely physiologic. [facility] Referring Provider Line: [phone] SITE ID: [id number]
[2017-08-24 15:40] VITALS: BP 111/78
== END 2017-08-24 15:42 | disposition home or self-care (01) ==
LOC: ED 12:45
DX: C43.9 Malignant melanoma of skin, unspecified (principal); C78.7 Secondary malignant neoplasm of liver and intrahepatic bile duct; R10.13 Epigastric pain; R03.0 Elevated blood-pressure reading, without diagnosis of hypertension
CPT/HCPCS: 36415; 74177; 80053; 81001; 81025; 83690; 85025; 85610; 86850; 86900; 86901; 96374; 99283; 99284; J2270; Q9967; 81003; 87086

== ENCOUNTER 2017-10-19 20:49 | Emergency (ER) | payer OTHER ==
[2017-10-19] MEDS ORDERED: SODIUM CHLORIDE 0.9% 1,000 ML IV ONE (21:08)
--- NOTE | 2017-10-19 21:14 | ED Physician Documentation ---
History of Present Illness - Stated complaint Stated Complaint: ISSUES/POST RADIATION - Chief complaint Chief Complaint: Abd Pain - History obtained from History obtained from: Patient, Family - History of Present Illness Timing: Yesterday Pain level max: 3 Pain level now: 3 Severity Comments: chronic pain in the liver Improved by: nothing Worsened by: nothing - Additonal information Additional information: Patient is a 32-year-old female with a history of metastatic melanoma, currently undergoing chemotherapy and radiation. She is currently in a clinical trial. She states she developed a fever of 101 yesterday. Has no other symptoms. No coughing. No burning or frequency with urination. Does have continued nausea that is not relieved with the Compazine she is prescribed. She also has Zofran but was told to use this sparingly as it may interact with 1 of her chemo medications. Has not spoken with her oncologist today. Is currently being treated at the [facility]. Review of Systems Ten Systems: 10 systems reviewed and negative Constitutional: reports: Fever. denies: Chills Ears: denies: Ear pain Nose: denies: Rhinorrhea / runny nose, Congestion Throat: denies: Sore throat Cardiac: denies: Chest pain / pressure Respiratory: denies: Cough GI: reports: Abdominal Pain (pain in her liver, unchanged), Nausea, Vomiting. denies: Diarrhea : denies: Dysuria, Frequency, Hesitancy Skin: denies: Rash Musculoskeletal: denies: Neck pain, Back pain Neurologic: denies: Focal weakness, Numbness, Confused, Altered mental status, Headache PD PAST MEDICAL HISTORY - Past Medical History Past Medical History: Yes Derm: Other (metsattic melanoma) Other Past Medical History: metastatic melanoma - Past Surgical History Past Surgical History: Yes - Present Medications Home Medications: Ambulatory Orders Medication Instructions Recorded Confirmed Oxycodone HCl/Acetaminophen 1 - 2 tab PO Q4H PRN #15 tablet 08/24/17 [Percocet 5-325 mg Tablet] Levofloxacin [Levaquin] 750 mg PO DAILY #4 tablet 10/19/17 Promethazine [Phenergan] 25 mg PO Q6H PRN #10 tab 10/19/17 - Allergies Allergies/Adverse Reactions: Allergies Allergy/AdvReac Type Severity Reaction Status Date / Time No Known Drug Allergies Allergy Verified 04/18/17 23:13 - Living Situation Living Situation: reports: With family Living Arrangement: reports: At home - Social History Does the pt smoke?: No Smoking Status: Never smoker Does the pt drink ETOH?: Yes Does the pt have substance abuse?: No - Immunizations Immunizations are current?: Yes - POLST Patient has POLST: No PD ED PE NORMAL - Vitals Vital signs reviewed: Yes - General General: Alert and oriented X 3, No acute distress - HEENT HEENT: Moist mucous membranes - Neck Neck: Supple, no meningeal sign - Cardiac Cardiac: RRR, Strong equal pulses - Respiratory Respiratory: No respiratory distress, Clear bilaterally - Abdomen Abdomen: Soft, Non tender, Non distended - Back Back: No CVA TTP, No spinal TTP - Derm Derm: Warm and dry, No rash - Extremities Extremities: No edema, No calf tenderness / cord - Neuro Neuro: Alert and oriented X 3 - Psych Psych: Normal mood, Normal affect Results - Vitals Vitals: Vital Signs - 24 hr 10/19/17 10/19/17 10/19/17 20:58 22:33 23:09 Temperature 36.7 C 36.4 C L Heart Rate 109 H 101 H 97 Respiratory 16 20 20 Rate Blood Pressure 120/82 H 105/72 105/72 O2 Saturation 99 100 100 Oxygen O2 Source Room air - EKG (time done) 2238 Rate: Rate (enter#) (94) Rhythm: NSR Epes: Normal Intervals: Normal IA QRS: Normal Ischemia: Normal ST segments, Q waves (III, aVF) - Labs Labs: Laboratory Tests 10/19/17 10/19/17 10/19/17 21:30 21:30 21:35 WBC 4.9 RBC 4.72 Hgb 12.4 Hct 37.4 MCV 79.2 L MCH 26.2 L MCHC 33.1 RDW 17.5 H Plt Count 211 MPV 8.9 Neut # (Auto) 3.1 Lymph # (Auto) 1.0 L [place] # (Auto) 0.8 Eos # (Auto) 0.0 Baso # (Auto) 0.0 Absolute Nucleated RBC 0.00 Nucleated RBC % 0.0 Sodium 137 Potassium 4.2 Chloride 103 Carbon Dioxide 24 Anion Gap 10.0 BUN 10 Creatinine 0.7 Estimated GFR (MDRD) 98 Glucose 94 Lactic Acid 1.7 Calcium 8.9 Total Bilirubin 2.4 H AST 1098 H ALT 1716 H Alkaline Phosphatase 251 H Total Protein 6.9 Albumin 3.3 Globulin 3.6 Albumin/Globulin Ratio 0.9 L Lipase 36 Urine Color Urine Clarity Urine pH Ur Specific [place] Urine Protein Urine Glucose (UA) Urine Ketones Urine Occult Blood Urine Nitrite Urine Bilirubin Urine Urobilinogen Ur Leukocyte Esterase Ur Microscopic Review Urine Culture Comments 10/19/17 21:35 WBC RBC Hgb Hct MCV MCH MCHC RDW Plt Count MPV Neut # (Auto) Lymph # (Auto) [place] # (Auto) Eos # (Auto) Baso # (Auto) Absolute Nucleated RBC Nucleated RBC % Sodium Potassium Chloride Carbon Dioxide Anion Gap BUN Creatinine Estimated GFR (MDRD) Glucose Lactic Acid Calcium Total Bilirubin AST ALT Alkaline Phosphatase Total Protein Albumin Globulin Albumin/Globulin Ratio Lipase Urine Color DARK YELLOW Urine Clarity CLEAR Urine pH 6.0 Ur Specific [place] >=1.030 H Urine Protein NEGATIVE Urine Glucose (UA) NEGATIVE Urine Ketones NEGATIVE Urine Occult Blood NEGATIVE Urine Nitrite NEGATIVE Urine Bilirubin SMALL H Urine Urobilinogen >=8.0 H Ur Leukocyte Esterase NEGATIVE Ur Microscopic Review NOT INDICATED Urine Culture Comments NOT INDICATED - Rads (name of study) Chest x-ray Radiology: Prelim report reviewed, EMP read contemporaneously, See rad report ( New airspace opacity in the inferior medial right middle lobe, representing atelectasis versus infiltrate.) PD MEDICAL DECISION MAKING - ED course Complexity details: reviewed results, re-evaluated patient, considered differential, d/w patient, d/w family, d/w senior [employer] consultant ED course: Patient is a 32-year-old female who presents to the emergency department with a fever yesterday. She does have a history of metastatic melanoma with metastases to the liver. Is currently undergoing chemotherapy and radiation. She is in a clinical study with [facility]. She appears to have a right middle lobe infiltrate on chest x-ray and will treat with Levaquin for pneumonia. She also has elevated liver enzymes of unclear etiology. Possible postradiation elevation versus side effect of the medications. I discussed the case with oncology on-call at the [facility] who is covering for [facility] and they recommend treating with Levaquin, Phenergan and calling her oncology team in the morning about the elevated liver function tests. Patient is comfortable with this plan. She is very well-appearing, nontoxic. Patient counseled regarding signs and symptoms for which I believe and urgent re-evaluation would be necessary. Patient with good understanding of and agreement to plan and is comfortable going home at this time This document was made in part using voice recognition software. While efforts are made to proofread this document, sound alike and grammatical errors may occur. - Sepsis Event Vital Signs: Vital Signs - 24 hr 10/19/17 10/19/17 10/19/17 20:58 22:33 23:09 Temperature 36.7 C 36.4 C L Heart Rate 109 H 101 H 97 Respiratory 16 20 20 Rate Blood Pressure 120/82 H 105/72 105/72 O2 Saturation 99 100 100 Oxygen O2 Source Room air Departure - Departure Disposition: Home, Self Care Clinical Impression: Nausea, Transaminitis Pneumonia Qualifiers: Pneumonia type: due to unspecified organism Laterality: right Lung location: middle lobe of lung Qualified Code(s): J18.1 - Lobar pneumonia, unspecified organism Fever Qualifiers: Fever type: unspecified Qualified Code(s): R50.9 - Fever, unspecified Condition: Good Instructions: ED Fever Unconf Cause, ED Pneumonia Adult Follow-Up: YOLIE GRAYSON DO [Primary Care Provider] - [facility] [Provider Group] - Tomorrow Prescriptions: Levofloxacin [Levaquin] 750 mg PO DAILY #4 tablet Promethazine [Phenergan] 25 mg PO Q6H PRN #10 tab PRN Reason: Nausea / Vomiting Comments: Take all antibiotics until gone. Return if you worsen. I spoke with the oncologist information clerk cashier tonight and you need to follow-up with your oncologist in the morning. Tell them that your liver tests are elevated. Your AST is 1098, your ALT is 1716, your total bilirubin is 2.4, your alkaline phosphatase is 251. Your corrected QT interval on your EKG is 431. Your white blood cell count is normal and your neutrophils are 3.1 Discharge Date/Time: 10/19/17 23:11
--- NOTE | 2017-10-19 21:29 | XRAY Report ---
Procedure Date: 10/19/2017 Accession Number: [id number] / [id number] Procedure: XR - Chest 2 View X-Ray CPT Code: 66259 FULL RESULT: EXAM: CHEST RADIOGRAPHY EXAM DATE: 10/19/2017 09:18 PM. CLINICAL HISTORY: Fever. On chemotherapy. COMPARISON: CHEST 2 VIEW 07/12/2017. TECHNIQUE: 2 views. FINDINGS: Lungs/Pleura: Normal volumes. New airspace opacity in the inferomedial right middle lobe, appears linear on the frontal view. No pleural effusion or pneumothorax. Mediastinum: Normal cardiomediastinal contour. Other: The bones are normal. Surgical clips in the right axilla. IMPRESSION: New airspace opacity in the inferomedial right middle lobe, representing atelectasis versus infiltrate. [facility]
[2017-10-19 21:54] LABS: GLUCOSE, URINE (UA) NEGATIVE (NEGATIVE); KETONES,URINE (UA) NEGATIVE (NEGATIVE); LEUKOCYTE ESTERASE, URINE NEGATIVE (NEGATIVE); NITRITE,URINE NEGATIVE (NEGATIVE); OCCULT BLOOD,URINE NEGATIVE (NEGATIVE); PROTEIN,URINE NEGATIVE (NEGATIVE); UROBILINOGEN,URINE >=8.0 E.U./dL (NORMAL)
[2017-10-19 21:55] LABS: BASOPHILS % (AUTO) 0.6 %; EOSINOPHILS % (AUTO) 0.1 %; HGB - HEMOGLOBIN 12.4 g/dL (12.0-16.0); LYMPHOCYTES % (AUTO) 19.3 %; MEAN CORPUSCULAR HEMOGLOBIN 26.2 pg (27.0-31.0); MEAN CORPUSCULAR HGB CONC 33.1 g/dL (32.0-36.0); MEAN CORPUSCULAR VOLUME 79.2 fL (81.0-99.0); MEAN PLATELET VOLUME 8.9 fL (7.9-10.8); MONOCYTES # (AUTO) 0.8 10^3/uL (0.0-1.0); MONOCYTES % (AUTO) 16.4 %; NEUTROPHILS # (AUTO) 3.1 10^3/uL (1.5-6.6); NEUTROPHILS % (AUTO) 63.6 %; PLT - PLATELET COUNT 211 10^3/uL (130-450); RED BLOOD COUNT 4.72 10^6/uL (4.20-5.40); RED CELL DISTRIBUTION WIDTH 17.5 % (12.0-15.0); WHITE BLOOD COUNT 4.9 x10^3/uL (4.8-10.8)
[2017-10-19 22:00] LABS: BILIRUBIN,URINE SMALL (NEGATIVE); CLARITY,URINE CLEAR (CLEAR); ICTOTEST,URINE POSITIVE
[2017-10-19 22:13] LABS: ALBUMIN 3.3 g/dL (3.2-5.5); ALBUMIN/GLOBULIN RATIO 0.9 (1.0-2.2); BILIRUBIN,TOTAL 2.4 mg/dL (0.2-1.0); CALCIUM 8.9 mg/dL (8.5-10.3); CREATININE 0.7 mg/dL (0.4-1.0); TOTAL PROTEIN 6.9 g/dL (6.7-8.2)
[2017-10-19 22:34] VITALS: BP 105/72
[2017-10-19] MEDS ORDERED: levoFLOXacin 250 MG TABLET PO STA (22:39)
[2017-10-19] MEDS ORDERED: PROMETHAZINE 25 MG TABLET PO STA (22:40)
== END 2017-10-19 23:11 | disposition home or self-care (01) ==
LOC: ED 20:49
DX: R11.0 Nausea (principal); R17 Unspecified jaundice; J18.1 Lobar pneumonia, unspecified organism; R50.9 Fever, unspecified; C79.9 Secondary malignant neoplasm of unspecified site; Z85.820 Personal history of malignant melanoma of skin; Z92.3 Personal history of irradiation; Z92.21 Personal history of antineoplastic chemotherapy
CPT/HCPCS: 36415; 71046; 80053; 81003; 83605; 83690; 85025; 87040; 93005; 96360; 99283; A9270; Q0169; 81001; 87086

== ENCOUNTER 2018-06-19 09:24 | Emergency (ER) | payer OTHER ==
--- NOTE | 2018-06-19 10:27 | XRAY Report ---
Reason: COUGH, CONGESTION, STAGE 4 melanoma Procedure Date: 06/19/2018 Accession Number: [id number] / [id number] Procedure: XR - Chest 2 View X-Ray CPT Code: 48524 FULL RESULT: EXAM: CHEST RADIOGRAPHY EXAM DATE: 06/19/2018 10:22 AM. CLINICAL HISTORY: Cough, congestion, stage 4 melanoma. COMPARISON: CHEST 2 VIEW 10/19/2017 9:12 PM. TECHNIQUE: 2 views. FINDINGS: Lungs/Pleura: No focal opacities evident. No pleural effusion. No pneumothorax. Normal volumes. Mediastinum: Heart and mediastinal contours are unremarkable. Other: Surgical clips in the right axillary region. IMPRESSION: No acute cardiopulmonary abnormality is detected. [facility]
--- NOTE | 2018-06-19 13:00 | ED Physician Documentation ---
PD HPI URI - Stated complaint Stated Complaint: COUGH/CONGESTION - Chief complaint Chief Complaint: Resp - History obtained from History obtained from: Patient, Family - History of Present Illness Timing - onset: How many days ago (4) Timing duration: Days (4) Timing details: Gradual onset Pain level max: 0 Pain level now: 0 Associated symptoms: Nasal congestion, Rhinorrhea, Sore throat, Dry cough. No: Fever, Chills Contributing factors: Sick contact, Immunocompromised (stage 4 melanoma) Improves by: Rest Worsened by: Activity, Breathing Recently seen: Not recently seen Review of Systems Constitutional: denies: Fever Nose: reports: Rhinorrhea / runny nose, Congestion Respiratory: reports: Cough : denies: Dysuria, Frequency, Hesitancy, Now EGA Skin: denies: Rash Musculoskeletal: denies: Neck pain, Back pain PD PAST MEDICAL HISTORY - Past Medical History Past Medical History: Yes Derm: Other Other Past Medical History: Stage 4 Melanoma - Past Surgical History Past Surgical History: Yes - Present Medications Home Medications: Ambulatory Orders Medication Instructions Recorded Confirmed Benzonatate [Tessalon Perle] 100 - 200 mg PO TID PRN #30 capsule 06/19/18 Cetirizine HCl/Pseudoephedrine 1 each PO BID PRN #30 tab.er.12h 06/19/18 [Zyrtec-D Tablet] Nivolumab [Opdivo] 240 mg IV ONCE 06/19/18 06/19/18 - Allergies Allergies/Adverse Reactions: Allergies Allergy/AdvReac Type Severity Reaction Status Date / Time No Known Drug Allergies Allergy Verified 06/19/18 09:46 - Social History Does the pt smoke?: No Smoking Status: Never smoker Does the pt drink ETOH?: Yes Does the pt have substance abuse?: No - Immunizations Immunizations are current?: Yes - POLST Patient has POLST: No PD ED PE NORMAL - Vitals Vital signs reviewed: Yes - General General: Alert and oriented X 3, No acute distress, Well developed/nourished - HEENT HEENT: PERRL, Ears normal, Moist mucous membranes, Pharynx benign - Neck Neck: Supple, no meningeal sign - Cardiac Cardiac: RRR, Strong equal pulses - Respiratory Respiratory: No respiratory distress, Clear bilaterally - Abdomen Abdomen: Soft, Non tender, Non distended - Derm Derm: Warm and dry, No rash - Neuro Neuro: Alert and oriented X 3 - Psych Psych: Normal mood, Normal affect Results - Vitals Vitals: Vital Signs - 24 hr 06/19/18 09:42 Temperature 37 C Heart Rate 100 Respiratory 20 Rate Blood Pressure 116/75 O2 Saturation 100 Oxygen O2 Source Room air - Labs Labs: Laboratory Tests 06/19/18 06/19/18 09:50 09:50 Influenza A (Rapid) Negative Influenza B (Rapid) Negative Group A Strep Rapid Negative - Rads (name of study) Chest x-ray Radiology: Prelim report reviewed, EMP read contemporaneously, See rad report (No acute disease) PD MEDICAL DECISION MAKING - ED course Complexity details: reviewed results, considered differential, d/w patient, d/w family ED course: 32-year-old female presents to the emergency department with cough and congestion. No fevers. She is on Opdivo for stage IV melanoma. She is on this once a month. She is well-appearing, nontoxic. No hypoxia or respiratory distress. Negative testing here. We will continue supportive care and follow- up with her doctor. Patient counseled regarding signs and symptoms for which I believe and urgent re-evaluation would be necessary. Patient with good understanding of and agreement to plan and is comfortable going home at this time This document was made in part using voice recognition software. While efforts are made to proofread this document, sound alike and grammatical errors may occur. Departure - Departure Disposition: 01 Home, Self Care Clinical Impression: Viral URI with cough Condition: Good Instructions: ED URI Viral Follow-Up: YOLIE GRAYSON DO [Primary Care Provider] - Within 1 week Prescriptions: Benzonatate [Tessalon Perle] 100 - 200 mg PO TID PRN #30 capsule PRN Reason: Cough Cetirizine HCl/Pseudoephedrine [Zyrtec-D Tablet] 1 each PO BID PRN #30 tab.er.12h PRN Reason: nasal congestion Comments: Your tests are normal today. Follow-up with your doctor for further care. This should improve over the next week. Return if you worsen
[2018-06-19 13:22] VITALS: BP 109/75
== END 2018-06-19 13:27 | disposition home or self-care (01) ==
LOC: ED 09:24
DX: J06.9 Acute upper respiratory infection, unspecified (principal); C43.9 Malignant melanoma of skin, unspecified; Z79.899 Other long term (current) drug therapy
CPT/HCPCS: 71046; 87070; 87275; 87276; 87430; 99283